=== PATIENT | female | born 1950 | race Caucasian/White ===

== ENCOUNTER → 2023-08-07 14:23 | Outpatient (REF) | payer MEDICARE, SELFPAY | LOC: WDC 14:23 | PROVIDERS: ATTENDING PHYSICIAN Internal Medicine | DX: Z12.31 Encounter for screening mammogram for malignant neoplasm of breast (principal) | CPT/HCPCS: 77063; 77067 ==

== ENCOUNTER → 2023-08-08 07:52 | Outpatient (REF) | payer MEDICARE, SELFPAY | LOC: HWRCS 07:52 | PROVIDERS: ATTENDING PHYSICIAN Internal Medicine | DX: I10 Essential (primary) hypertension (principal); R00.2 Palpitations | CPT/HCPCS: 93306 ==

== ENCOUNTER → 2023-12-20 13:35 | Outpatient (REF) | payer MEDICARE, SELFPAY | LOC: RCS 13:35 | PROVIDERS: ATTENDING PHYSICIAN Internal Medicine; REFERRING PHYSICIAN Student in an Organized Health Care Education/Training Program | DX: I10 Essential (primary) hypertension (principal); E78.00 Pure hypercholesterolemia, unspecified; R00.2 Palpitations | CPT/HCPCS: 93017; 93350 ==

== ENCOUNTER → 2024-02-01 08:40 | Outpatient (REF) | payer MEDICARE, SELFPAY | LOC: PAVMRI 08:40 | PROVIDERS: ATTENDING PHYSICIAN Orthopaedic Surgery; FAMILY PHYSICIAN Internal Medicine | DX: M75.41 Impingement syndrome of right shoulder (principal) | CPT/HCPCS: 73221 ==

== ENCOUNTER → 2024-08-11 11:18 | Outpatient (REF) | payer MEDICARE, SELFPAY | LOC: WDC 11:18 | PROVIDERS: ATTENDING PHYSICIAN Internal Medicine | DX: Z12.31 Encounter for screening mammogram for malignant neoplasm of breast (principal) | CPT/HCPCS: 77063; 77067 ==

== ENCOUNTER → 2024-12-31 08:22 | Outpatient (REF) | payer MEDICARE, SELFPAY | LOC: PAVMRI 08:22 | PROVIDERS: ATTENDING PHYSICIAN Internal Medicine | DX: M25.512 Pain in left shoulder (principal) | CPT/HCPCS: 73221 ==

== ENCOUNTER → 2025-02-15 10:53 | Outpatient (REF) | payer MEDICARE, SELFPAY | LOC: PAVMRI 10:53 | PROVIDERS: ATTENDING PHYSICIAN Specialist; FAMILY PHYSICIAN Internal Medicine | DX: M25.551 Pain in right hip (principal); M54.16 Radiculopathy, lumbar region | CPT/HCPCS: 72148; 73721 ==